=== PATIENT | female | born 1940 | race Caucasian/White ===

== ENCOUNTER 2017-01-23 21:56 | Inpatient (IN) | payer MEDICARE ==
[~2017-01-23] VITALS: Ht 167.6 cm; Wt 118.7 kg
[2017-01-24] VITALS (8 sets, daily range): BP systolic 105–146; BP diastolic 63–81; PULSE 116–148; RESP 16–20; O2SAT 93–98
[2017-01-24] MEDS ORDERED: MeTOProlol 1 mg/mL 5 mL Inj IV ONE (00:55)
[2017-01-24] MEDS ORDERED: Heparin 5,000 Unit/mL Inj SUBQ SCH (01:05)
[2017-01-24] MEDS ORDERED: Polyethylene Glycol (PEG) 17 Gm Powder PO PRN (01:05)
[2017-01-24] MEDS ORDERED: Alum-Mag Hydrox-Simeth 30 mL Suspension PO PRN (01:05)
[2017-01-24] MEDS ORDERED: Ondansetron 2 mg/mL 2 mL Inj IVPUSH PRN (01:05)
[2017-01-24] MEDS ORDERED: MeTOProlol 1 mg/mL 5 mL Inj IV PRN (01:10)
[2017-01-24] MEDS: 0.9% Sodium Chloride 1,000 ML IV SCH ×3 (01:17→21:49)
[2017-01-24] MEDS: MeTOProlol 1 mg/mL 5 mL Inj IVPUSH SCH ×2 (01:20→01:40)
--- NOTE | 2017-01-24 02:07 | PCM.HPMED ---
Subjective Date of Service Jan 24, 2017 Primary Provider: Admitting Physician: Mae Read DO Primary Care Physician: Other,Physician Attending Physician: Mae Read DO Admit Status: Direct Admit Chief Complaint: A. fib with RVR, nausea vomiting diarrhea History of Present Illness: Ms. Bah is a 76-year-old female with past medical history of A. fib, polymyalgia, skin cancer who presented to [facility] secondary to 3 days of nausea and vomiting and diarrhea. She states approximately 3 days ago she became acutely ill with nausea and multiple episodes of vomitus and multiple episodes of diarrhea daily. Denies any blood or mucous in either vomitus or stool. Lives alone with her dog on [facility] [address], no other sick contacts. No recent contact with children. No travel ever outside the country, recent travel in October to [place], east of the [place] area. She reports no changes in her normal diet and cannot think of any spoiled foods or canned foods she has ingested. She has not been able to take her regular prescribed medications secondary to nausea vomiting. She does state in October she was seen by her primary care physician Dr. Kebede on [facility] secondary to a left leg infection, she was given antibiotics for multiple months recently discontinuing the antibiotic course. She does not remember the name of the antibiotic. She denies dizziness, fevers, headache, visual changes, musculoskeletal chest pain, cardiac chest pain, chronic shortness of breath, extremity numbness or tingling. Does state that she has abdominal pain and cramping and occasional shortness of breath on exertion. Direct admit from [facility], unfortunately documentation from [facility] physician was not included in admission paperwork. At time of dictation awaiting further records. Review of Systems: A comprehensive review of systems was conducted with the patient and found to be negative except as above in the history of present illness. Allergies Coded Allergies: No Known Drug Allergies (Unverified Allergy, Unknown, 01/24/17) Home Medications Per [facility] med rec: Atenolol 25mg PO Diltiazam HCL [Diltiazam 24 Hr Cd] 300 mg PO Prednisone 1 mg PO Rivaroxaban [Xaralto] 20 mg po daily Per outpatient [facility] dermatology records - last updated 07/08/2016 Ascorbic acid Atenolol 25 mg Vitamin D Diltiazem ER 360 mg Losartan 100 mg Magnesium Prednisone Triamterene 37.5 mg Hydrocort thiazide 25 mg Vitamin B12 UBIDECARENONE Xaralto Clobetasol [facility] Reports: A. fib Polymyalgia Melanoma Basal cell carcinoma Surgical History Hysterectomy "many years ago" Basal cell carcinoma removal 6 years ago Family History Patient denies contributory family history Social History Hx Alcohol Use: No Hx Substance Use: No Hx Tobacco Use: No Living Arrangement: Alone Exam Vital Signs Vital Sign - Last Date Time Temp Pulse Resp B/P Pulse Ox O2 Delivery O2 Flow Rate FiO2 01/24/17 00:54 37.6 148 20 146/80 96 Room Air Exam General: Obese female lying in hospital bed in mild distress, well-developed, well-nourished, appropriately interactive HEENT: Normocephalic, atraumatic. External ears without defect. Pupils equal, round, and reactive to light and accommodation. Extraocular eye movements intact. Oropharynx free of erythema and cobble stoning with moist mucosa. Neck: Supple with full range of motion. No jugular venous distension. No pain to palpation anterior posterior neck Cardiovascular: Tachycardic rate with irregular rhythm no murmurs appreciated. Pulmonary: Clear to auscultation bilaterally with no crackles, wheezes, or rhonchi. Normal respiratory effort with no use of accessory muscles. GI: Bowel tones present. Soft, mildly tender to palpation left lower quadrant. No masses appreciated Extremities: Lower extremity edema. Venous stasis changes. Neurological: Cranial nerves grossly intact. Lymph: no cervical or supraclavicular lymphadenopathy MSK: no edema / erythema of joints, normal range of motion Psychiatric: Normal mood and affect. Alert and oriented to person, place, and time. Assessment & Plan Ms. Bah is a 76-year-old female with past medical history of A. fib, polymyalgia & skin cancer admitted for A. fib with RVR and N/V/D. Sepsis. Present on admission. Ongoing - Sepsis criteria are met with tachycardia, tachypnea, leukocytosis and hyperthermia - Probable source GI - Fluid resuscitation - Antibiotics vancomycin, metronidazole - Appropriate cultures and serologies pending - Continue to monitor Acute Kidney injury.. Present on admission. Ongoing - No previous records to establish chronicity, request outpatient records - IV fluids - Avoid nephrotoxic agents - Continue to monitor - Consult nephrology if not improved A. fib with RVR. Present on admission. Ongoing - At time of dictation medication reconciliation pending - Reportedly takes home atenolol, diltiazem and Xaralto - awaiting med rec - Reviewed EKG, consistent with atrial fibrillation with RVR - Patient reports she has not taken her medications in over a week - Rate control with metoprolol 5 mg IV and diltiazem 10 mg IV pushes ineffective - Transferred to PCC for IV diltiazem drip - ECG shows atrial fibrillation with right bundle branch block, possible ST depression suboptimal ECG - Telemetry - TSH normal - Restart home Xaralto, day team to confirm dosage Gastroenteritis. Acute. Present on admission. Ongoing - Consider C. difficile colitis, recent long-term antibiotic use - CT from [facility] reportedly negative, records not available at time of dictation, records requested - Stool PCR pending - Leukocytosis and elevated pro calcitonin - ABX as above - IV fluids as above - Electrolyte replacement - Contact precautions Elevated troponin. Acute. Present on admission. Ongoing - Most likely secondary to demand ischemia from A. fib - Patient asymptomatic, reports no cardiac chest pain - Transferred to PCC for diltiazem drip - Continue to monitor Nausea vomiting - Zofran when necessary Anemia. Present on admission. Ongoing - Iron studies panel pending - Stool guaiac - Continue monitor Hyperglycemia. Present on admission. Ongoing - Hemoglobin A1c pending Patient Status: Patient was admitted under inpatient status with expected length of stay greater than two midnights due to severity of presenting symptoms , risk of adverse event, and complexity of treatment plan. VTE Prophylaxis: Sub-Q Heparin (Unfractionated) Resuscitation Status: CPR: Attempt Resuscitation Attending Statement The patient was seen and examined together with house staff on 01/24/2017 and I agree with the history, exam and plan as outlined in the note above. LIAM ROBLEDO DO Jan 24, 2017 02:07 Mae Read DO Jan 24, 2017 05:37
[2017-01-24] MEDS ORDERED: Diltiazem 5 mg/mL 5 mL Inj IVPUSH ONE (02:15)
[2017-01-24] MEDS ORDERED: Vancomycin 250 mg Oral Capsule PO ONE (02:40)
[2017-01-24 02:42] LABS: BASOPHILS % (AUTO) 0.1 % (0-3); EOSINOPHILS % (AUTO) 0 % (0-5); MONOCYTES % (AUTO) 11.4 % (4-12); Mean Corpuscular Hemoglobin 25.6 pg (27.0-35.0); Mean Corpuscular Volume 81.8 fL (81-100); NEUTROPHILS % (AUTO) 84.9 % (40-74); Platelet Count 150 bil/L (150-400)
[2017-01-24 03:01] LABS: INR 1.13 ratio
[2017-01-24 03:39] LABS: Magnesium 1.9 mg/dL (1.6-2.6)
[2017-01-24 03:43] LABS: TROPONIN T 0.566 ug/L (0.0-0.011)
[2017-01-24] MEDS ORDERED: metroNIDAZOLE Inj 500 MG in IV Premix 1 EACH IV SCH (04:00)
[2017-01-24] MEDS ORDERED: 0.9% Sodium Chloride 250 ML IV ONE ×2 (04:10→04:20)
[2017-01-24] MEDS ORDERED: Potassium Chloride 20 mEq SR Tab(K 3 - 3.7 & Cr 2.1 - 2.9) PO ONE (04:35)
[2017-01-24] MEDS: Diltiazem Inj 125 MG in 0.9% Sodium Chloride 100 ML, Pharmacy To Mix 1 EA IV SCH ×4 (05:41→23:06)
[2017-01-24 05:59] LABS: Unsaturated Iron Binding 201.2 ug/dL
[2017-01-24] MEDS: Hydrocortisone 50 mg/mL 2 mL Inj IVPUSH SCH ×2 (09:27→18:02)
[2017-01-24] MEDS ORDERED: DILT300C50 PO (09:41)
[2017-01-24] MEDS ORDERED: ATEN25TA PO (09:41)
[2017-01-24] MEDS ORDERED: RIVA20TA PO (09:41)
[2017-01-24] MEDS ORDERED: PRD1T PO (09:41)
[2017-01-24 10:13] LABS: TROPONIN T 0.519 ug/L (0.0-0.011)
--- NOTE | 2017-01-24 10:49 | PCM.PNMED ---
Subjective Date of Service Jan 24, 2017 Subjective She feels somewhat lethargic. No diarrhea or lasts several hours. No abdominal pain or cramping. She does not feel palpitations. No shortness of breath at rest but some dyspnea with exertion. No chest pain or cough. No overnight events. Exam Vital Signs Vital Sign - Last Date Time Temp Pulse Resp B/P Pulse Ox O2 Delivery O2 Flow Rate FiO2 01/24/17 08:00 130 01/24/17 08:00 38.1 18 120/63 96 Room Air Intake and Output 01/23/17 01/23/17 01/24/17 Cumulative From/Thru 15:00 23:00 07:00 01/24/17 00:54 - 01/24/17 06:16 Intake Total 0 ml 0 ml Output Total 300 ml 300 ml Balance -300 ml -300 ml Intake Oral 0 ml 0 ml Output Urine Total 300 ml 300 ml # Bowel Movements 0 0 Exam Alert and oriented -3, no distress. Fluent speech Anicteric sclera. Lungs are clear with normal rate and effort Heart is irregular without murmur gallop or rub, tachycardic Abdomen soft nontender, flat Extremities with 1+ edema bilaterally. Skin is free of rash or lesions. IVs and Medications Medications Reviewed: Medications were reviewed in detail Lab and Diagnostics Result Diagram: 01/24/17 0225 01/24/17 0910 Assessment & Plan Ms. Bah is a 76-year-old female with past medical history of A. fib, polymyalgia & skin cancer admitted for A. fib with RVR and N/V/D. Sepsis. Present on admission. Improving. - Sepsis criteria are met with tachycardia, tachypnea, leukocytosis and hyperthermia - Probable source GI (gastroenteritis, stool PCR pending) - Fluid resuscitation - Antibiotics vancomycin, metronidazole, we will stop metronidazole. - Appropriate cultures and serologies pending - Continue to monitor Possible adrenal insufficiency, POA. Patient's on low-dose prednisone for PMR. We will place her on stress dose hydrocortisone 100 every 8. Acute renal failure, POA. This is likely a functional volume depletion. We will fluid resuscitate and follow. - A. fib with RVR. Present on admission. Improving. The plan is to have metoprolol 12.5 twice a day and attempt to wean her diltiazem drip. - At time of dictation medication reconciliation pending - Reportedly takes home atenolol, diltiazem and Xaralto - awaiting med rec - Reviewed EKG, consistent with atrial fibrillation with RVR - Patient reports she has not taken her medications in over a week - Rate control with metoprolol 5 mg IV and diltiazem 10 mg IV pushes ineffective - Transferred to PCC for IV diltiazem drip - ECG shows atrial fibrillation with right bundle branch block, possible ST depression suboptimal ECG - Telemetry - TSH normal - Restart home Xaralto, Probable NSTEMI, POA. The patient initially had ST segment depressions laterally with her rapid ventricular response. We will treat her medically at this time and continue to obtain rate control. We will also obtain a 2-D echo. As patient is on Cymbalta will not heparinize her at this time. Gastroenteritis. Acute. Present on admission. Ongoing - Consider C. difficile colitis, recent long-term antibiotic use - CT from [facility]. reportedly negative, records not available at time of dictation, records requested - Stool PCR pending - Leukocytosis and elevated pro calcitonin - ABX as above - IV fluids as above - Electrolyte replacement - Contact precautions Elevated troponin. Acute. Present on admission. Ongoing - Most likely secondary to demand ischemia from A. fib - Patient asymptomatic, reports no cardiac chest pain - Transferred to [facility] for diltiazem drip - Continue to monitor, goal is to minimize cardiac strain with rate control. Nausea vomiting - Zofran when necessary Anemia. Present on admission. Ongoing - Iron studies panel pending - Stool guaiac - Continue monitor clinically Hyperglycemia. Present on admission. Ongoing - Hemoglobin A1c pending, we will manage her with correctional lispro Patient Status: Patient was admitted under inpatient status with expected length of stay greater than two midnights due to severity of presenting symptoms , risk of adverse event, and complexity of treatment plan. VTE Prophylaxis: Sub-Q Heparin (Unfractionated) Resuscitation Status: CPR: Attempt Resuscitation Ye Pandey MD Jan 24, 2017 10:49
[2017-01-24] MEDS ORDERED: Glucose 40% Oral Gel 15 Gm Tube PO PRN (10:50)
[2017-01-24] MEDS ORDERED: Insulin LISPRO 300 Unit/3 mL Inj SUBQ SCH (12:00)
--- NOTE | 2017-01-24 12:58 | DRSVH ---
PROCEDURE: X-RAY CHEST ONE VIEW, PORTABLE ([id number]) INDICATIONS: A-fib TECHNIQUE: One view of the chest was acquired. COMPARISON: None. FINDINGS: Surgical changes and devices: None. Lungs and pleura: Shallow inspiration. No pleural effusions or pneumothorax. Lungs are clear. Mediastinum: Mediastinal contours appear normal. Heart size is prominent for technique. Bones and chest wall: No suspicious bony lesions. Overlying soft tissues appear unremarkable. IMPRESSION: No acute cardiopulmonary disease. Dictated by: Adolfo Fuentes [facility] Interpreted: Jeovany Watkins MD on 01/24/2017 at 10:03 Approved by: Jeovany Watkins M.D. on 01/24/2017 at 12:56
[2017-01-24 16:31] LABS: APPEARANCE,URINE CLOUDY (CLEAR,HAZY); COLOR,URINE YELLOW (YELLOW); OCCULT BLOOD,URINE MODERATE (NEGATIVE); PH,URINE 5.5 (5.0-8.0); UROBILINOGEN,URINE NORMAL (NORMAL)
--- NOTE | 2017-01-24 17:55 | DRSVH ---
[facility] [address] [place] [address] Echocardiogram Report Name: TATY SOLITARIO ate: 01/24/2017 Height: 66 in Hospital Exam Location: [facility] Weight: 246 lb Gender: Female BSA: 2.2 m2 : 1940 Age: 76 yrs BP: 116/70 mmHg Reason For Study: Atrial fibrillation rvr Ordering Physician: HOSPITALIST [facility] Performed By: Jamal Roblero Referring Physician: LIAM ROBLEDO Interpretation Summary Left ventricular size is at the upper limits of normal. Left ventricular systolic function is moderately reduced. The ejection fraction is estimated to be 35-40%. There is mild to moderate global hypokinesis of the left ventricle. The right ventricle is mildly dilated. Right ventricular systolic function is mild to moderately reduced. The right ventricular systolic pressure is estimated at 36 mmHg assuming a right atrial pressure of 8 mm Hg. The left atrium is moderately dilated. The right atrium is mildly dilated. There is moderate mitral regurgitation. There is moderate to severe tricuspid regurgitation. There is no other significant valvular heart disease. The ascending aorta is mildly enlarged. There is atrial fibrillation with RVR. This is most consistent with tachycardia-mediated cardiomyopathy. Procedure: A two-dimensional transthoracic echocardiogram with color flow and Doppler was performed. The study quality was technically adequate. There is no prior echocardiogram noted for this patient. The patient was in atrial fibrillation with rapid ventricular response during the exam with a heart rate exceeding 100 bpm. Left Ventricle: Left ventricular size is at the upper limits of normal. Left ventricular wall thickness is at the upper limits of normal. Left ventricular systolic function is moderately reduced. The ejection fraction is estimated to be 35-40%. There is mild to moderate global hypokinesis of the left ventricle. Diastolic function could not be accurately assessed due to atrial fibrillation. Right Ventricle: The right ventricle is mildly dilated. Right ventricular systolic function is mild to moderately reduced. Atria: The left atrium is moderately dilated. The right atrium is mildly dilated. The interatrial septum is intact with no evidence for an atrial septal defect. Mitral Valve: The mitral valve leaflets are mildly calcified. There is mild to moderate mitral annular calcification. There is moderate mitral regurgitation. Aortic Valve: The aortic valve is normal in structure and function. No aortic regurgitation is present. Tricuspid Valve: The tricuspid valve is normal. There is moderate to severe tricuspid regurgitation. The right ventricular systolic pressure is estimated at 36 mmHg assuming a right atrial pressure of 8 mm Hg. Pulmonic Valve: The pulmonic valve leaflets are thin and pliable; valve motion is normal. There is a trace or physiologic amount of pulmonic regurgitation. There is no other significant valvular heart disease. Great Vessels: The aortic root is normal size. The ascending aorta is mildly enlarged. The pulmonary artery is normal size. The IVC is dilated (diameter is greater than 2.1 cm) yet it collapses greater than 50% with a sniff. This suggests a right atrial pressure of 8 mm Hg. Pericardium/ Pleura There is no pericardial effusion. There is no pleural effusion. MMode/2D Measurements & Calculations LVIDd: 5.3 cm RA long axis LVOT diam LVIDs: 4.6 cm LA A2 area: 26.1 cm FS: 12.6 % LA A4 area: 29.6 cm RA area AoV Opening EPSS: 0.81 cm LA length (vol): 6.6 cm IVSd: 1.0 cm LA vol: 98.8 ml : 22.3 cm Ao root diam LVPWd: 0.93 cm LA vol index RA vol : 72.9 ml asc Aorta RA Diam: 3.7 cm IVC diam: 2.7 cm : 33.4 mm2 LV maria. diameter/BSA LV sys. diameter/BSA RVD1 (basal) TAPSE: 0.96 cm (cm/m^2): 2.4 (cm/m^2): 2.1 Doppler Measurements & Calculations Ao V2 max MV E max sav Med Peak E' Sav TR max sav : 90.5 cm/sec : 105.1 cm/sec : 266.2 cm/sec Ao max PG E/E' med: 21.8 TR max P.4 mmHg : 3.3 mmHg Lat Peak E' Sav PA V2 max: 55.7 cm/sec Ao mean PG PA mean P.71 mmHg E/E' lat: 12.6 LVOT Max Sav E/e' average : 67.5 cm/sec FREDRICK(I,D): 2.5 cm sev ratio Ao V2 mean LV V1 max PG PA V2 mean FREDRICK indexed to BSA : 65.9 cm/sec : 40.4 cm/sec (cm^2/m^2): 1.1 Ao V2 VTI LV V1 VTI: 10.8 cm PA pr(Accel) : 45.3 mmHg FREDRICK(V,D): 2.4 cm2 Reading Physician:MAKI
[2017-01-24] MEDS ORDERED: Insulin GLARgine 100 Unit/mL Syringe SUBQ SCH (21:00)
[2017-01-25] VITALS (9 sets, daily range): BP systolic 102–121; BP diastolic 61–86; PULSE 93–127; RESP 17–23; O2SAT 95–98
[2017-01-25] MEDS: Hydrocortisone 50 mg/mL 2 mL Inj IVPUSH SCH ×3 (01:13→17:11)
[2017-01-25] MEDS ORDERED: Piperacillin-Tazo 3.375 Gm Inj 3.375 GM in Dextrose 5% Minibag Plus 50 ML IV ONE (04:30)
--- NOTE | 2017-01-25 08:31 | PCM.PNMED ---
Subjective Date of Service Jan 25, 2017 Subjective She is very much better today. Some intermittent twinges of pain. No palpitations although she remains in A. fib with RVR. No nausea, no diarrhea. She did have 4 out of 4 positive blood cultures working in our last night. Antibiotics switched to Zosyn. No confusion No other overnight events Exam Vital Signs Vital Sign - Last Date Time Temp Pulse Resp B/P Pulse Ox O2 Delivery O2 Flow Rate FiO2 01/25/17 05:44 115 01/25/17 05:28 36.6 19 113/68 95 Room Air Intake and Output 01/24/17 01/24/17 01/25/17 Cumulative From/Thru 15:00 23:00 07:00 01/24/17 00:54 - 01/25/17 05:25 Intake Total 2334 ml 1371 ml 3705 ml Output Total 300 ml 250 ml 850 ml Balance 2034 ml 1121 ml 2855 ml Intake Oral 586 ml 100 ml 686 ml IV Total 1748 ml 1271 ml 3019 ml Output Urine Total 300 ml 250 ml 850 ml # Bowel Movements 0 0 Exam Alert and oriented -3, no distress. Fluent speech Anicteric sclera. Lungs are clear with normal rate and effort Heart is irregular without murmur gallop or rub, mildly tachycardic Abdomen soft nontender, flat Extremities 2+ edema, chronic Skin is free of rash or lesions. IVs and Medications Medications Reviewed: Medications were reviewed in detail Lab and Diagnostics Result Diagram: 01/24/17 0225 01/24/17 0910 Assessment & Plan Ms. Bah is a 76-year-old female with past medical history of A. fib, polymyalgia & skin cancer admitted for A. fib with RVR and N/V/D. #. Sepsis. Present on admission. Improving. Sources pyelonephritis with GNR septicemia. - Sepsis criteria are met with tachycardia, tachypnea, leukocytosis and hyperthermia - Probable source GI (gastroenteritis, stool PCR pending) - Fluid resuscitation - Antibiotics vancomycin, metronidazole, we will stop metronidazole. - Appropriate cultures and serologies pending - Continue to monitor We will continue Zosyn awaiting cultures. Stop other antibiotics. #. Nausea and diarrhea, POA. Resolved. Follow clinically. #. Probable and STEMI, POA. Active improving. Follow troponins and continue medical management as allowed with her long-term anticoagulation #. Probable chronic systolic heart failure, POA. Echo reveals global LV hypokinesis with an EF of 35%. We will be discussing further risk stratification and ongoing medical management of her cardiac elbows with cardiology this morning. #. Possible adrenal insufficiency, POA. Patient's on low-dose prednisone for PMR. We will place her on stress dose hydrocortisone 100 every 8. #. Acute renal failure, POA. Stable. We will follow creatinine and continue to hold nephrotoxic medications. #. Atrial fibrillation with rapid ventricular response. Present on admission. Improving. We will uptitrate metoprolol to 50 twice a day this morning. - At time of dictation medication reconciliation pending - Reportedly takes home atenolol, diltiazem and Xaralto - awaiting med rec - Reviewed EKG, consistent with atrial fibrillation with RVR - Patient reports she has not taken her medications in over a week - Rate control with metoprolol 5 mg IV and diltiazem 10 mg IV pushes ineffective - Transferred to PCC for IV diltiazem drip - ECG shows atrial fibrillation with right bundle branch block, possible ST depression suboptimal ECG - Telemetry - TSH normal - Restart home Xaralto, #. Hyperglycemia. Present on admission. Improving. We will follow clinically. - Hemoglobin A1c pending, we will manage her with correctional lispro Patient Status: Patient was admitted under inpatient status with expected length of stay greater than two midnights due to severity of presenting symptoms , risk of adverse event, and complexity of treatment plan. DVT prophylaxis, patient is on Xarelto. VTE Prophylaxis: Sub-Q Heparin (Unfractionated) Resuscitation Status: CPR: Attempt Resuscitation Ye Pandey MD Jan 25, 2017 08:31
[2017-01-25] MEDS: 0.9% Sodium Chloride 1,000 ML IV SCH ×2 (08:54→19:54)
[2017-01-25 08:55] LABS: Mean Corpuscular Hemoglobin 25.6 pg (27.0-35.0); Mean Corpuscular Volume 81.2 fL (81-100)
[2017-01-25] MEDS: Diltiazem Inj 125 MG in 0.9% Sodium Chloride 100 ML, Pharmacy To Mix 1 EA IV SCH ×2 (08:55→17:15)
[2017-01-25 09:49] LABS: TROPONIN T 0.296 ug/L (0.0-0.011)
[2017-01-25] MEDS: Piperacillin-Tazo 3.375 Gm Inj 3.375 GM in Dextrose 5% Minibag Plus 50 ML IV SCH ×2 (12:56→17:12)
[2017-01-26] VITALS (7 sets, daily range): BP systolic 116–134; BP diastolic 68–86; PULSE 104–133; RESP 17–25; O2SAT 96–99
[2017-01-26] MEDS: Hydrocortisone 50 mg/mL 2 mL Inj IVPUSH SCH ×4 (00:44→17:28)
[2017-01-26] MEDS: Piperacillin-Tazo 3.375 Gm Inj 3.375 GM in Dextrose 5% Minibag Plus 50 ML IV SCH (00:45)
[2017-01-26] MEDS: Diltiazem Inj 125 MG in 0.9% Sodium Chloride 100 ML, Pharmacy To Mix 1 EA IV SCH (00:45)
[2017-01-26 03:03] LABS: Mean Corpuscular Hemoglobin 25.6 pg (27.0-35.0); Mean Corpuscular Volume 81.5 fL (81-100)
[2017-01-26 03:54] LABS: TROPONIN T 0.242 ug/L (0.0-0.011)
[2017-01-26] MEDS: 0.9% Sodium Chloride 1,000 ML IV SCH ×3 (06:08→19:29)
--- NOTE | 2017-01-26 08:11 | PCM.PNMED ---
Subjective Date of Service Jan 26, 2017 Subjective She is feeling better. She slept well. She is still globally weak. No fevers or chills. No dysuria or polyuria. No cough or shortness of breath. No overnight events Exam Vital Signs Vital Sign - Last Date Time Temp Pulse Resp B/P Pulse Ox O2 Delivery O2 Flow Rate FiO2 01/26/17 05:06 36.4 113 17 118/74 96 Room Air Intake and Output 01/25/17 01/25/17 01/26/17 Cumulative From/Thru 15:00 23:00 07:00 01/24/17 00:54 - 01/26/17 06:10 Intake Total 2173 ml 1490 ml 7368 ml Output Total 1000 ml 1850 ml Balance 1173 ml 1490 ml 5518 ml Intake Oral 840 ml 1526 ml IV Total 1333 ml 1490 ml 5842 ml Output Urine Total 1000 ml 1850 ml # Bowel Movements 0 Exam Alert and oriented -3, no distress. Fluent speech, some dyspnea with talking. Anicteric sclera. Lungs are clear with normal rate and effort Heart is irregular without murmur gallop or rub, mildly tachycardic Abdomen soft nontender, flat Extremities with 1+ edema Skin is free of rash or lesions. Right arm is somewhat swollen IVs and Medications Medications Reviewed: Medications were reviewed in detail Lab and Diagnostics Result Diagram: 01/26/1722401/26/17224 Assessment & Plan Ms. Bah is a 76-year-old female with past medical history of A. fib, polymyalgia & skin cancer admitted for A. fib with RVR and N/V/D. #. Sepsis. Present on admission. Improving. Sources pyelonephritis with Escherichia coli septicemia - Sepsis criteria are met with tachycardia, tachypnea, leukocytosis and hyperthermia - Probable source GI (gastroenteritis, stool PCR pending) - Fluid resuscitation - Antibiotics vancomycin, metronidazole, we will stop metronidazole. - Appropriate cultures and serologies pending - Continue to monitor We will convert to ceftriaxone every 24 hours. Her leukocytosis is likely related to stress dose steroids. #. Nausea and diarrhea, POA. Resolved. Follow clinically. #. Probable NSTEMI, POA. She continues to be asymptomatic. We will continue medical therapy. Her troponins are downtrending. She does have global hypokinesis but no focal wall abnormalities. #. Probable acute on chronic systolic heart failure, POA. Echo reveals global LV hypokinesis with an EF of 35%. We will be discussing further risk stratification and ongoing medical management of her cardiac elbows with cardiology this morning. This likely a manifestation of her fluids. We will give her Lasix 20 IV 1 and follow closely. #. Adrenal insufficiency, POA. Patient's on low-dose prednisone for PMR. Will decrease her stress cortisone 250 every 8. #. Acute renal failure, POA. Stable and slowly improving.. We will follow creatinine and continue to hold nephrotoxic medications. #. Atrial fibrillation with rapid ventricular response. Present on admission. Improving. We will uptitrate metoprolol to 50 twice a day this morning. -Continue Xarelto, we will uptitrate metoprolol to 75 3 times a day. Will stop the diltiazem drip. May have to add digoxin for rate control if she continues to be in the low 100s. #. Hyperglycemia. Present on admission. Improving. We will follow clinically. - Hemoglobin A1c pending, we will manage her with correctional lispro Patient Status: Patient was admitted under inpatient status with expected length of stay greater than two midnights due to severity of presenting symptoms , risk of adverse event, and complexity of treatment plan. DVT prophylaxis, patient is on Xarelto. VTE Prophylaxis: Sub-Q Heparin (Unfractionated) Resuscitation Status: CPR: Attempt Resuscitation Ye Pandey MD Jan 26, 2017 08:11
[2017-01-26] MEDS ORDERED: Meropenem Inj 1,000 MG in 0.9% Sodium Chloride 100 ML IV SCH (08:30)
[2017-01-26] MEDS: Furosemide 10 mg/mL 2 mL Inj IVPUSH ONE ×2 (08:45→11:07)
[2017-01-26] MEDS: cefTRIAXone Inj 2,000 MG in Dextrose 5% Minibag Plus 50 ML IV SCH ×2 (08:46→11:08)
[2017-01-26] MEDS ORDERED: Sodium Chloride LOK Flush 10 mL Syringe IVFLUSH PRN ×2 (11:05)
--- NOTE | 2017-01-26 12:30 | DRSVH ---
PROCEDURE: X-RAY PICC LINE PLACEMENT BY NURSE ([id number]) INDICATIONS: poor venous access COMPARISON: [facility], CR, XR CHEST 1VW (PORTABLE), 01/24/2017, 5:32. FINDINGS: PICC was placed by the intravenous therapy team from the left side. Fluoroscopic spot sujatha m demonstrates tip of PICC at the cavoatrial junction. IMPRESSION: Tip of PICC lies at the cavoatrial junction. Dictated by: Gordo Carroll M.D. on 01/26/2017 at 12:23 Approved by: Gordo Carroll M.D. on 01/26/2017 at 12:23
[2017-01-26] MEDS: Neomycin-Bacitracin-Polymyxin 15 Gm Ointment TOPICAL SCH (12:53)
[2017-01-27] VITALS (9 sets, daily range): BP systolic 108–169; BP diastolic 58–89; PULSE 70–125; RESP 18–24; O2SAT 95–99
[2017-01-27] MEDS: Hydrocortisone 50 mg/mL 2 mL Inj IVPUSH SCH ×3 (01:17→17:18)
[2017-01-27] MEDS: 0.9% Sodium Chloride 1,000 ML IV SCH ×2 (05:34→17:18)
[2017-01-27] MEDS: NEOMY/BACITRA/POLYMYX OINT 1 PACKET/0.9 GM PACKET TOPICAL SCH ×2 (08:30→20:30)
[2017-01-27] MEDS: cefTRIAXone Inj 2,000 MG in Dextrose 5% Minibag Plus 50 ML IV SCH (10:17)
[2017-01-27 10:39] LABS: Mean Corpuscular Hemoglobin 25.2 pg (27.0-35.0); Mean Corpuscular Volume 80.7 fL (81-100)
[2017-01-27 11:15] LABS: TROPONIN T 0.145 ug/L (0.0-0.011)
[2017-01-27] MEDS ORDERED: Furosemide 10 mg/mL 2 mL Inj IVPUSH ONE (11:40)
--- NOTE | 2017-01-27 13:33 | PCM.PNMED ---
Subjective Date of Service Jan 27, 2017 Subjective She has a little more energy today. No chest pain. She has dyspnea with exertion and a history of chronic systolic heart failure. She has had several soft stools but no overt diarrhea like before admission. No fevers or chills. She is being treated for Escherichia coli septicemia and pyelonephritis. No overnight events noted Exam Vital Signs Vital Sign - Last Date Time Temp Pulse Resp B/P Pulse Ox O2 Delivery O2 Flow Rate FiO2 01/27/17 13:09 112 01/27/17 12:38 36.4 24 122/72 98 Room Air Intake and Output 01/26/17 01/26/17 01/27/17 Cumulative From/Thru 15:00 23:00 07:00 01/24/17 00:54 - 01/27/17 06:02 Intake Total 650 ml 1709 ml 1144 ml 80555 ml Output Total 1050 ml 850 ml 3750 ml Balance -400 ml 859 ml 1144 ml 7121 ml Intake Oral 650 ml 792 ml 2968 ml IV Total 917 ml 1144 ml 7903 ml Output Urine Total 1050 ml 850 ml 3750 ml # Bowel Movements 0 Exam Alert and oriented -3, no distress. Fluent speech Anicteric sclera. Lungs are clear with normal rate and effort Heart is irregular without murmur gallop or rub, tachycardic Abdomen soft nontender, flat Extremities are free of edema. Skin is free of rash or lesions. IVs and Medications Medications Reviewed: Medications were reviewed in detail Lab and Diagnostics Result Diagram: 01/27/17 1015 01/27/17 1015 Assessment & Plan Ms. Bah is a 76-year-old female with past medical history of A. fib, polymyalgia & skin cancer admitted for A. fib with RVR and N/V/D. #. Sepsis. Present on admission. Resolved. Source is pyelonephritis with Escherichia coli septicemia Continue ceftriaxone, leukocytosis is beginning to improve #. Nausea and diarrhea, POA. Resolved. Now with some soft stools. Send stool PCR CDT #. Probable NSTEMI, POA. She continues to be asymptomatic. We will continue medical therapy. Her troponins are downtrending. She does have global hypokinesis but no focal wall abnormalities. She may require further risk stratification after getting over her acute sepsis syndrome #. Probable acute on chronic systolic heart failure, POA. Echo reveals global LV hypokinesis with an EF of 35%. W will give her an additional dose of Lasix IV today. We will also check a chest x-ray confirmed probable pulmonary edema. #. Adrenal insufficiency, POA. Patient's on low-dose prednisone for PMR. Will decrease her stress cortisone to 50 every 8. #. Acute renal failure, POA. Stable and slowly improving.. We will follow creatinine and continue to hold nephrotoxic medications. #. Atrial fibrillation with rapid ventricular response. Present on admission. Persisting. We will add digoxin orally daily and continue her metoprolol 100 mg by mouth twice a day. She does have chronic atrial fibrillation and typically has better rate control. Continue chronic seroma to. #. Hyperglycemia. Present on admission. Improving. We will follow clinically. - Hemoglobin A1c pending, we will manage her with correctional lispro Patient Status: Patient was admitted under inpatient status with expected length of stay greater than two midnights due to severity of presenting symptoms , risk of adverse event, and complexity of treatment plan. DVT prophylaxis, patient is on Xarelto. She will likely build a discharge in the next few days or so pending clinical course and rate control. VTE Prophylaxis: Sub-Q Heparin (Unfractionated) Resuscitation Status: CPR: Attempt Resuscitation Ye Pandey MD Jan 27, 2017 13:32
--- NOTE | 2017-01-27 15:54 | DRSVH ---
PROCEDURE: X-RAY CHEST ONE VIEW, PORTABLE ([id number]) INDICATIONS: dyspnea TECHNIQUE: One view of the chest was acquired. COMPARISON: [facility], CR, XR CHEST 1VW (PORTABLE), 01/24/2017, 5:32. FINDINGS: Surgical changes and devices: Left PICC present tip projected over the mid superior vena cava. Lungs and pleura: No pleural effusions or pneumothorax. Lungs are clear. Mediastinum: Mediastinal contours appear normal. Heart size is normal. Bones and chest wall: No suspicious bony lesions. Overlying soft tissues appear unremarkable. IMPRESSION: No acute cardiopulmonary disease. Dictated by: Adolfo Fuentes [facility] Interpreted: Leonor Mcintosh MD on 01/27/2017 at 13:32 Approved by: Leonor Mcintosh M.D. on 01/27/2017 at 15:53
[2017-01-27] MEDS: Vancomycin 250 mg Oral Capsule PO SCH (23:37)
[2017-01-28] VITALS (9 sets, daily range): BP systolic 146–169; BP diastolic 90–102; PULSE 92–116; RESP 17–20; O2SAT 93–98
[2017-01-28] MEDS: Hydrocortisone 50 mg/mL 2 mL Inj IVPUSH SCH ×2 (00:32→10:02)
[2017-01-28] MEDS: 0.9% Sodium Chloride 1,000 ML IV SCH ×3 (00:33→20:53)
[2017-01-28 03:52] LABS: Mean Corpuscular Hemoglobin 25.5 pg (27.0-35.0); Mean Corpuscular Volume 81.3 fL (81-100)
[2017-01-28] MEDS: Vancomycin 250 mg Oral Capsule PO SCH ×4 (05:10→23:24)
[2017-01-28] MEDS: NEOMY/BACITRA/POLYMYX OINT 1 PACKET/0.9 GM PACKET TOPICAL SCH ×2 (08:30→19:27)
[2017-01-28] MEDS: cefTRIAXone Inj 2,000 MG in Dextrose 5% Minibag Plus 50 ML IV SCH (10:01)
--- NOTE | 2017-01-28 14:32 | PCM.PNMED ---
Subjective Date of Service Jan 28, 2017 Subjective 76-year-old woman presents with Escherichia coli sepsis due to urinary source and diarrhea due to C. difficile colitis. She continues to feel very weak. Appetite is moderately diminished. No severe fevers chills or rigors. No abdominal or flank pain. She describes soft stools with some urgency but no overt diarrhea. Exam Vital Signs Vital Sign - Last Date Time Temp Pulse Resp B/P Pulse Ox O2 Delivery O2 Flow Rate FiO2 01/28/17 13:47 101 01/28/17 13:23 36.5 20 146/92 94 Room Air Intake and Output 01/27/17 01/27/17 01/28/17 Cumulative From/Thru 15:00 23:00 07:00 01/24/17 00:54 - 01/28/17 05:58 Intake Total 1972 ml 1652 ml 24827 ml Output Total 1050 ml 600 ml 5400 ml Balance 922 ml 1052 ml 9095 ml Intake Oral 886 ml 400 ml 4254 ml IV Total 1086 ml 1252 ml 46114 ml Output Urine Total 1050 ml 400 ml 5200 ml Urine/Stool Mix 200 ml 200 ml # Voids 2 2 # Bowel Movements 3 3 Exam General: Obese elderly woman in mild distress, diminished mood HEENT: sclerae anicteric, oral mucosa moist Neck: no JVD Chest: clear to auscultation Cardiac: S1S2, irregular, no murmur Abdomen: BS normal, non-tender Extremities: No pitting edema Neuro: A&O, cranial nerves symmetric, motor strength and coordination normal Lab and Diagnostics Result Diagram: 01/28/17 0350 01/28/17 0350 Assessment & Plan Ms. Bah is a 76-year-old female with past medical history of A. fib, polymyalgia & skin cancer admitted for A. fib with RVR and N/V/D. #. Sepsis. Present on admission. Resolving. Source is pyelonephritis with Escherichia coli septicemia - Antibiotics initiated 01/26/17 Continue ceftriaxone #. Nausea and diarrhea, POA. Resolving. Stool culture is positive for C. difficile as of 01/27/17 - Oral vancomycin initiated 01/27/17. #. Elevated troponin, possible NSTEMI, POA. She continues to be asymptomatic. Troponin 0.57 on admission, now declined to 0.15 with no change in renal function. Rate related cardiac strain due to A. fib versus underlying ischemic CAD. She does have global hypokinesis but no focal wall abnormalities. - Observe clinically #. Chronic systolic heart failure, POA. Echo reveals global LV hypokinesis with an EF of 35%. - When necessary Lasix #. PMR with low dose prednisone therapy. - Stress dose steroids not indicated #. Acute kidney injury, with CK D stage IV POA. Her baseline renal function is not known. Stable. - follow creatinine and continue to hold nephrotoxic medications. #. Atrial fibrillation with rapid ventricular response. Present on admission. Persisting. On rivaroxaban and metoprolol chronically - Continue Xarelto - digoxin orally daily and - continue her metoprolol 100 mg by mouth twice a day. #. Hyperglycemia. Present on admission. Improving. We will follow clinically. - Hemoglobin A1c pending, - 4 times a day blood sugar checks - Basal and correctional insulin Chronic stable problems: #PMR # Congestive heart failure systolic with LVEF 35% Patient Status: Patient was admitted under inpatient status with expected length of stay greater than two midnights due to severity of presenting symptoms , risk of adverse event, and complexity of treatment plan. Anticipate 1-2 more days for recovery of strength and ability to ambulate independently. Anticipate by mouth antibiotics. To complete 10 days oral vancomycin for C. difficile. DVT prophylaxis, patient is on Xarelto. VTE Prophylaxis: Other Resuscitation Status: CPR: Attempt Resuscitation Time spent 35 minutes Goyo Alvarez MD Jan 28, 2017 14:31
[2017-01-28] MEDS ORDERED: Dextrose 10% 250 ML IV PRN (14:35)
[2017-01-28] MEDS ORDERED: Glucose 40% Oral Gel 15 Gm Tube PO PRN (14:35)
[2017-01-28] MEDS: Insulin LISPRO 300 Unit/3 mL Inj SUBQ SCH ×2 (17:30→20:52)
[2017-01-29] VITALS (9 sets, daily range): BP systolic 158–191; BP diastolic 95–114; PULSE 98–121; RESP 17–20; O2SAT 94–99
[2017-01-29] MEDS ORDERED: Furosemide 10 mg/mL 4 mL Inj IVPUSH ONE (03:40)
[2017-01-29] MEDS: Vancomycin 250 mg Oral Capsule PO SCH ×4 (04:21→23:00)
[2017-01-29 05:39] LABS: Mean Corpuscular Hemoglobin 25.1 pg (27.0-35.0); Mean Corpuscular Volume 82.2 fL (81-100); Platelet Count 303 bil/L (150-400)
[2017-01-29] MEDS ORDERED: Potassium Chloride Oral 20 mEq SR Tab(K 3 - 3.7 & Creat < 2) PO ONE (06:40)
[2017-01-29 06:41] LABS: BASOPHILS % (AUTO) 0 % (0-3); EOSINOPHILS % (AUTO) 0 % (0-5); MONOCYTES % (AUTO) 9 % (4-12); NEUTROPHILS % (AUTO) 84 % (40-74)
[2017-01-29] MEDS: Insulin LISPRO 300 Unit/3 mL Inj SUBQ SCH ×4 (08:00→19:59)
[2017-01-29] MEDS: NEOMY/BACITRA/POLYMYX OINT 1 PACKET/0.9 GM PACKET TOPICAL SCH ×2 (09:21→19:50)
[2017-01-29] MEDS: cefTRIAXone Inj 2,000 MG in Dextrose 5% Minibag Plus 50 ML IV SCH (09:22)
--- NOTE | 2017-01-29 14:34 | PCM.PNMED ---
Subjective Date of Service Jan 29, 2017 Subjective 76-year-old woman presents with Escherichia coli sepsis due to urinary source and diarrhea due to C. difficile colitis. She continues to feel very weak. Very fatigued due to sleep interruptions last night. Appetite is moderately diminished. She describes soft stools with some urgency but no overt diarrhea. Exam Vital Signs Vital Sign - Last Date Time Temp Pulse Resp B/P Pulse Ox O2 Delivery O2 Flow Rate FiO2 01/29/17 13:54 Room Air 01/29/17 13:06 36.4 106 17 163/95 99 Intake and Output 01/28/17 01/28/17 01/29/17 Cumulative From/Thru 15:00 23:00 07:00 01/24/17 00:54 - 01/29/17 06:11 Intake Total 2163 ml 1710 ml 85296 ml Output Total 925 ml 1550 ml 7875 ml Balance 1238 ml 160 ml 08535 ml Intake Oral 836 ml 900 ml 5990 ml IV Total 1327 ml 810 ml 46269 ml Output Urine Total 925 ml 1550 ml 7675 ml Urine/Stool Mix 200 ml # Voids 2 # Bowel Movements 3 6 Exam General: Obese elderly woman in mild distress, diminished mood HEENT: sclerae anicteric, oral mucosa moist Neck: no JVD Chest: clear to auscultation Cardiac: S1S2, irregular, no murmur Abdomen: BS normal, non-tender Extremities: Trace pitting edema; tender nonpitting edema with stasis changes Neuro: A&O, cranial nerves symmetric, motor strength and coordination normal IVs and Medications Medications Reviewed: Medications were reviewed in detail Lab and Diagnostics Result Diagram: 01/29/1753001/29/17530 Assessment & Plan Ms. Bah is a 76-year-old female with past medical history of A. fib, polymyalgia & skin cancer admitted for A. fib with RVR and N/V/D. Acute, Active or High-risk Problems: #. Sepsis. Present on admission. Resolving. Source is pyelonephritis with Escherichia coli septicemia - Antibiotics initiated 01/26/17 - Continue ceftriaxone for pyelonephritis #. C. difficile colitis, moderate. Marked leukocytosis. Diarrhea is mild. Last fever was low-grade on 01/24/17. Resolving. - Stool culture is positive for C. difficile as of 01/27/17 - Oral vancomycin initiated 01/27/17. #. Chronic systolic heart failure, POA. Echo reveals global LV hypokinesis with an EF of 35%. Experience dyspnea and hypoxia at night on 01/28 and received furosemide. Lungs subsequently clear with good oxygenation and normal respiratory rate. - When necessary Lasix - Discontinue IV fluids #. Deconditioning and weakness. Metabolic myopathy due to sepsis. - Physical therapy consult, encourage ambulation - Anticipate discharge with home physical therapy versus SNF Chronic or Stable but Actively Managed Problems: #. Elevated troponin, possible NSTEMI, POA. She continues to be asymptomatic. Troponin 0.57 on admission, now declined to 0.15 with no change in renal function. Rate related cardiac strain due to A. fib versus underlying ischemic CAD. She does have global hypokinesis but no focal wall abnormalities. - Observe clinically #. PMR with low dose prednisone therapy. Recently on 3 mg per day. Stress dose steroids not indicated - Hydrocortisone discontinued #. Acute kidney injury, with CK D stage IV POA. Her baseline renal function is not known. Stable. - follow creatinine and continue to hold nephrotoxic medications. #. Atrial fibrillation with rapid ventricular response. Present on admission. Persisting. On rivaroxaban and metoprolol chronically. Heart rate remains mildly elevated, consistent with her metabolic stress. - Continue Xarelto - digoxin orally daily and - continue her metoprolol 100 mg by mouth twice a day. Will not increase dose for mild tachycardia. #. Hyperglycemia. Present on admission. Improving. We will follow clinically. - Hemoglobin A1c pending, - 4 times a day blood sugar checks - Basal and correctional insulin Chronic stable problems: #PMR # Congestive heart failure systolic with LVEF 35% Patient Status: Patient was admitted under inpatient status with expected length of stay greater than two midnights due to severity of presenting symptoms , risk of adverse event, and complexity of treatment plan. Anticipate 2 more days for recovery of strength and ability to ambulate independently. Anticipate by mouth antibiotics. To complete 10-14 days oral vancomycin for C. difficile. DVT prophylaxis, patient is on Xarelto. VTE Prophylaxis: Other Resuscitation Status: CPR: Attempt Resuscitation Time spent 35 min Goyo Alvarez MD Jan 29, 2017 14:34
[2017-01-29] MEDS ORDERED: Potassium Chloride 20 mEq SR Tablet PO ONE ×2 (14:55→15:15)
[2017-01-29] MEDS ORDERED: Nitroglycerin 2% 1 Gm Ointment TOPICAL ONE (23:20)
[2017-01-30] VITALS (10 sets, daily range): BP systolic 139–180; BP diastolic 88–111; PULSE 102–114; RESP 16–20; O2SAT 93–100
[2017-01-30] MEDS ORDERED: Labetalol 5 mg/mL 20 mL Inj IVPUSH ONE (02:20)
[2017-01-30] MEDS: Vancomycin 250 mg Oral Capsule PO SCH ×4 (07:40→21:08)
[2017-01-30] MEDS: cefTRIAXone Inj 2,000 MG in Dextrose 5% Minibag Plus 50 ML IV SCH (07:41)
[2017-01-30] MEDS: Insulin LISPRO 300 Unit/3 mL Inj SUBQ SCH ×4 (08:00→22:00)
[2017-01-30] MEDS: NEOMY/BACITRA/POLYMYX OINT 1 PACKET/0.9 GM PACKET TOPICAL SCH (08:30)
--- NOTE | 2017-01-30 13:28 | PCM.PNMED ---
Subjective Date of Service Jan 30, 2017 Subjective 76-year-old woman presents with Escherichia coli sepsis due to urinary source and diarrhea due to C. difficile colitis. She continues to feel weak. Very fatigued due to sleep interruptions last night. Appetite is moderately diminished. No diarrhea or abdominal pain. Exam Vital Signs Vital Sign - Last Date Time Temp Pulse Resp B/P Pulse Ox O2 Delivery O2 Flow Rate FiO2 01/30/17 05:29 110 01/30/17 03:31 173/96 01/30/17 02:03 36.6 16 98 Room Air Intake and Output 01/29/17 01/29/17 01/30/17 Cumulative From/Thru 15:00 23:00 07:00 01/24/17 00:54 - 01/30/17 05:03 Intake Total 936 ml 300 ml 02925 ml Output Total 750 ml 750 ml 9375 ml Balance 186 ml -450 ml 61950 ml Intake Oral 936 ml 300 ml 7226 ml IV Total 83043 ml Output Urine Total 750 ml 750 ml 9175 ml Urine/Stool Mix 200 ml # Voids 2 # Bowel Movements 2 0 8 Exam General: Obese elderly woman in mild distress, diminished mood HEENT: sclerae anicteric, oral mucosa moist Neck: no JVD Chest: clear to auscultation Cardiac: S1S2, irregular, no murmur Abdomen: BS normal, non-tender Extremities: Trace pitting edema; significant tender nonpitting edema with stasis changes Neuro: A&O, cranial nerves symmetric, motor strength and coordination normal IVs and Medications Medications Reviewed: Medications were reviewed in detail Lab and Diagnostics Result Diagram: 01/29/17 0531 01/30/17 1240 Assessment & Plan Ms. Bah is a 76-year-old female with past medical history of A. fib, polymyalgia & skin cancer admitted for A. fib with RVR and N/V/D. Acute, Active or High-risk Problems: #. Sepsis. Present on admission. Resolving. Source is pyelonephritis with Escherichia coli septicemia. Today day 6 IV antibiotics. - Switched to co-trimoxazole to complete 14 days for complicated pyelonephritis #. C. difficile colitis, moderate. Marked leukocytosis. Diarrhea is mild. Last fever was low-grade on 01/24/17. Resolving. - Stool culture is positive for C. difficile as of 6/12/17 - Oral vancomycin initiated 01/27/17. #. Atrial fibrillation with rapid ventricular response. Present on admission. Persisting. On rivaroxaban and metoprolol chronically. Heart rate remains mildly elevated, consistent with her metabolic stress. - Continue Xarelto - digoxin orally daily and - Increased her metoprolol 100 mg by mouth twice a day to TID. #. Chronic systolic heart failure, POA. Echo reveals global LV hypokinesis with an EF of 35%. Experience dyspnea and hypoxia at night on 01/28 and received furosemide. Lungs subsequently clear with good oxygenation and normal respiratory rate. No hypertensive due to fluid overload - IV Lasix 20 mg daily started 01/30 #. Hypertension, acute on chronic. Normotensive at type of admission. Currently approximately 160/100 range - Diuretic - Add clonidine short-term #. Deconditioning and weakness. Metabolic myopathy due to sepsis. - Physical therapy consult, encourage ambulation - Anticipate discharge with home physical therapy versus SNF Chronic or Stable but Actively Managed Problems: #. Elevated troponin, possible NSTEMI, POA. She continues to be asymptomatic. Troponin 0.57 on admission, now declined to 0.15 with no change in renal function. Rate related cardiac strain due to A. fib versus underlying ischemic CAD. She does have global hypokinesis but no focal wall abnormalities. - Observe clinically #. PMR with low dose prednisone therapy. Recently on 3 mg per day. Stress dose steroids not indicated - Hydrocortisone discontinued #. Acute kidney injury, with CK D stage IV POA. Her baseline renal function is not known. Stable. - follow creatinine and continue to hold nephrotoxic medications. #. Hyperglycemia. Present on admission. Improving. We will follow clinically. - Hemoglobin A1c pending, - 4 times a day blood sugar checks - Basal and correctional insulin Chronic stable problems: #PMR # Congestive heart failure systolic with LVEF 35% Patient Status: Anticipate discharge on 01/31 of heart rate and blood pressure adequately controlled. To complete 14 days therapy for pyelonephritis, then 5 more days oral vancomycin for C. difficile. DVT prophylaxis, patient is on Xarelto. VTE Prophylaxis: Other Resuscitation Status: CPR: Attempt Resuscitation Time spent 40 minutes Goyo Alvarez MD Jan 30, 2017 13:28 Goyo Alvarez MD Jan 30, 2017 13:28
[2017-01-30] MEDS: Furosemide 10 mg/mL 2 mL Inj IVPUSH SCH (13:33)
[2017-01-30] MEDS: cloNIDine 0.1 mg Tablet PO SCH ×2 (13:33→21:08)
[2017-01-30] MEDS: Neomycin-Bacitracin-Polymyxin 15 Gm Ointment TOPICAL SCH (21:09)
[2017-01-31] VITALS (7 sets, daily range): BP systolic 154–179; BP diastolic 68–96; PULSE 90–114; RESP 16–18; O2SAT 98–99
[2017-01-31] MEDS: Neomycin-Bacitracin-Polymyxin 15 Gm Ointment TOPICAL SCH ×2 (00:12→08:03)
[2017-01-31] MEDS: Vancomycin 250 mg Oral Capsule PO SCH ×4 (00:12→14:53)
[2017-01-31] MEDS: NEOMY/BACITRA/POLYMYX OINT 1 PACKET/0.9 GM PACKET TOPICAL SCH (00:13)
[2017-01-31 07:34] LABS: Mean Corpuscular Hemoglobin 25.1 pg (27.0-35.0); Mean Corpuscular Volume 83.7 fL (81-100)
[2017-01-31] MEDS: Insulin LISPRO 300 Unit/3 mL Inj SUBQ SCH ×2 (08:00→12:00)
[2017-01-31] MEDS: Furosemide 10 mg/mL 2 mL Inj IVPUSH SCH (08:02)
[2017-01-31] MEDS: cefTRIAXone Inj 2,000 MG in Dextrose 5% Minibag Plus 50 ML IV SCH (08:02)
[2017-01-31] MEDS ORDERED: cloNIDine 0.1 mg Tablet PO SCH (08:30)
[2017-01-31] MEDS ORDERED: SULF1TAB7 PO (12:50)
[2017-01-31] MEDS ORDERED: VANC250C3 PO (12:50)
[2017-01-31] MEDS ORDERED: TRIA1TAB2 PO (12:50)
[2017-01-31] MEDS ORDERED: ATOR20TA PO (12:53)
--- NOTE | 2017-01-31 14:06 | PCM.DIMED ---
Discharge Instructions Date of Service Jan 31, 2017 Dates of Hospitalization Jan 24, 2017 at 00:29 Discharge Diagnosis Discharge Diagnosis Sepsis due to Escherichia coli bacteremia Pyelonephritis due to Escherichia coli C. difficile colitis Atrial fibrillation with rapid ventricular response Hypertension Chronic kidney disease Medication Instructions Additional med instructions The antibiotic Bactrim (co-trimoxazole) is prescribed for the next 6 days to complete your treatment for infection of the kidney with spread to the bloodstream. The antibiotic vancomycin capsules is taken 4 times per day for your C. difficile colitis. It is important that you continue this for 1 full week after you complete your antibiotic treatment for the kidney infection. This will prevent recurrence of your C. difficile colitis. C. difficile can cause spores to linger in clothing, bathroom and bedroom areas. It is cleared by soap and water. A thorough laundering of towels, recently used clothes and bedding is advised. A soap and water cleaning of bathroom is recommended. Your blood pressure has been very elevated during this hospitalization. This may in part be due to intravenous fluids that were administered. To help control your blood pressure we advised that you take your usual medications ( atenolol and diltiazem) as well as a new prescription for the mild water pill Maxzide. Take this regularly for the next few weeks, and contact your physician regarding how long this should be continued. Based on your risk factors for vascular disease, we recommend that you take atorvastatin (Lipitor) to reduce your risk of stroke and heart attack. We have reduced the dose slightly in light of your use of diltiazem, which boosts the effect of atorvastatin. Contact your physician regarding continuation of this medication. Test Results Test Results CBC Test 01/27/17 17:30 01/29/17 05:31 01/31/17 03:20 Hold Purple Top Tube Received (Received) Neutrophils (%) (Auto) 84% (40-74) Lymphocytes (%) (Auto) 7% (14-46) Monocytes (%) (Auto) 9% (4-12) Eosinophils (%) (Auto) 0% (0-5) Basophils (%) (Auto) 0% (0-3) White Blood Count 19.9th/mm3 (3.8-10.1) Red Blood Count 3.62mil/mm3 (3.90-5.20) Hemoglobin 9.1g/dL (12.0-15.6) Hematocrit 30.3% (35.0-46.0) Mean Corpuscular Volume 83.7fL (81-100) Mean Corpuscular Hemoglobin 25.1pg (27.0-35.0) Mean Corpuscular Hemoglobin Concent 30.0% (32.0-37.0) Red Cell Distribution Width 18.6% (12.3-15.4) Platelet Count 285bil/L (150-400) CMP Test 01/24/17 02:25 01/25/17 08:50 01/27/17 10:15 01/27/17 17:30 Hemoglobin A1c 5.6% Lactic Acid Level 1.1mmol/L Magnesium Level 1.9mg/dL Iron Level 10ug/dL Total Iron Binding Capacity 211ug/dL Percent Iron Saturation 5%sat Unsaturated Iron Binding 201.2ug/dL Thyroid Stimulating Hormone (TSH) 1.340uIU/mL Total Bilirubin 0.3mg/dL Aspartate Amino Transf (AST/SGOT) 34U/L Alanine Aminotransferase (ALT/SGPT) 45U/L Alkaline Phosphatase 103U/L Total Protein 5.5g/dL Albumin 2.5g/dL Troponin T 0.145ug/L Hold Lane Top Tube Received Test 01/31/17 03:20 Sodium Level 145mEq/L Potassium Level 4.1mEq/L Chloride Level 111mEq/L Carbon Dioxide Level 19mmol/L Blood Urea Nitrogen 44mg/dL Creatinine 1.54mg/dL Estimat Glomerular Filtration Rate 47mL/min Glucose Level 105mg/dL Calcium Level 8.5mg/dL Procalcitonin 0.48ng/mL Diet Discharge Diet: Heart Healthy Activity Discharge Activity: Other ( Obtain assistance from friends and family for strenuous activities. Continue with home and outpatient physical therapy to restore your strength.) Patient Instructions Patient Instructions Your white blood cell count has remained elevated throughout this hospitalization, although most other signs suggest that you are recovering from urinary infection and colitis. Be vigilant for signs of fever, abdominal pain, diarrhea or confusion which may indicate recurrence of C. difficile infection. Follow-up plan We recommend home health physical therapy 3 times per week for the next 4 weeks , home RN once per week for 2 weeks to check your blood pressure and heart rate. Contact your primary care doctor on Friday for a post-hospitalization follow-up appointment. Goyo Alvarez MD Jan 31, 2017 13:09
--- NOTE | 2017-02-05 17:57 | PCM.DC.MED ---
Discharge Summary Date of Service Feb 05, 2017 Dates of Hospitalization Date of Hospital Admission Jan 24, 2017 at 00:29 Date of Discharge: Jan 31, 2017 Providers: Admitting Physician: Mae Read DO Primary Care Physician: Other,Physician Attending Physician: Mae Read DO Diagnosis at Time of Discharge Diagnosis at Time of Discharge Sepsis due to Escherichia coli bacteremia Pyelonephritis due to Escherichia coli C. difficile colitis Atrial fibrillation with rapid ventricular response Hypertension Chronic kidney disease Brief History History of Present Illness (per admission note): Ms. Bah is a 76-year-old female with past medical history of A. fib, polymyalgia, skin cancer who presented to [facility] secondary to 3 days of nausea and vomiting and diarrhea. She states approximately 3 days ago she became acutely ill with nausea and multiple episodes of vomitus and multiple episodes of diarrhea daily. Denies any blood or mucous in either vomitus or stool. Lives alone with her dog on [facility] [address], no other sick contacts. No recent contact with children. No travel ever outside the country, recent travel in October to [place], east of the [facility]. She reports no changes in her normal diet and cannot think of any spoiled foods or canned foods she has ingested. She has not been able to take her regular prescribed medications secondary to nausea vomiting. She does state in October she was seen by her primary care physician Dr. Kebede on [facility] secondary to a left leg infection, she was given antibiotics for multiple months recently discontinuing the antibiotic course. She does not remember the name of the antibiotic. She denies dizziness, fevers, headache, visual changes, musculoskeletal chest pain, cardiac chest pain, chronic shortness of breath, extremity numbness or tingling. Does state that she has abdominal pain and cramping and occasional shortness of breath on exertion.Direct admit from [facility]. . Hospital Course Acute, Active or High-risk Problems: #. Sepsis. Present on admission. Resolving. Source is pyelonephritis with Escherichia coli septicemia. Today day 6 IV antibiotics. - Switched to co-trimoxazole to complete 14 days for complicated pyelonephritis #. C. difficile colitis, moderate. Marked leukocytosis which persisted throughout the hospitalization despite overall clinical stability. Diarrhea is mild. Last fever was low-grade on 01/24/17, subsequently afebrile. - Stool culture is positive for C. difficile as of 01/27/17 - Oral vancomycin initiated 01/27/17, to continue 1 week after completion of pyelonephritis antibiotics. #. Atrial fibrillation with rapid ventricular response. Present on admission. Persisting. Rate control achieved with digoxin orally daily and metoprolol 100 mg TID. - Continue Xarelto - Return to her prior atenolol plus diltiazem regimen at time of discharge - Recommend home health RN to monitor cardiovascular vital signs and respiratory status #. Chronic systolic heart failure, POA. Echo reveals global LV hypokinesis with an EF of 35%. Experience dyspnea and hypoxia at night on 01/28 and received furosemide. Lungs subsequently clear with good oxygenation and normal respiratory rate. She received IV Lasix 20 mg daily for several days. - She is not on Rik/ARB, but reluctant to do so at this time due to acute kidney injury, CKD and initiation of co-trimoxazole for recovery from pyelonephritis - Defer to primary care provider #. Hypertension, acute on chronic. Normotensive at type of admission. Currently approximately 160/100 range, due to fluid resuscitation from sepsis. Responded well to diuresis. - Stable on atenolol and diltiazem at time of discharge #. Deconditioning and weakness. Metabolic myopathy due to sepsis. - Discharge with home physical therapy versus SNF Chronic or Stable but Actively Managed Problems: #. Elevated troponin, possible NSTEMI, POA. No chest pain. She continues to be asymptomatic throughout hospitalization. Troponin 0.57 on admission, now declined to 0.15 with no change in renal function. This was considered to be due to rate related cardiac strain due to A. fib, less likely unstable ischemic CAD. She does have global hypokinesis but no focal wall abnormalities. #. PMR with low dose prednisone therapy. Recently on 3 mg per day. Stress dose steroids ministered initially then Hydrocortisone discontinued #. Acute kidney injury, with CK D stage IV POA. Her baseline renal function is not known. Stable. #. Hyperglycemia. Present on admission. Improving. We will follow clinically. - Resolved Chronic stable problems: #PMR # Congestive heart failure systolic with LVEF 35% . Exam Vital Signs (Last) Date Time Temp Pulse Resp B/P Pulse Ox O2 Delivery O2 Flow Rate FiO2 01/31/17 12:11 36.3 99 18 154/83 98 Room Air Exam General: Obese elderly woman in no acute distress HEENT: sclerae anicteric, oral mucosa moist Neck: no JVD Chest: clear to auscultation Cardiac: S1S2, irregular, no murmur Abdomen: BS normal, non-tender Extremities: Trace pitting edema; significant tender nonpitting edema with stasis changes Neuro: A&O, cranial nerves symmetric, motor strength generally normal Test 01/24/17 02:25 01/24/17 16:13 01/25/17 08:50 01/27/17 10:15 Prothrombin Time 12.1sec (8.1-12.5) Prothromb Time International Ratio 1.13ratio Hemoglobin A1c 5.6% (4.8-5.6) Lactic Acid Level 1.1mmol/L (0.4-2.0) Magnesium Level 1.9mg/dL (1.6-2.6) Iron Level 10ug/dL (35-150) Total Iron Binding Capacity 211ug/dL (250-450) Percent Iron Saturation 5%sat (15-50) Unsaturated Iron Binding 201.2ug/dL Thyroid Stimulating Hormone (TSH) 1.340uIU/mL (0.450-4.500) Urine Color Yellow (YELLOW) Urine Appearance Cloudy (CLEAR,HAZY) Urine pH 5.5 (5.0-8.0) Urine Specific [place] 1.020 (1.003-1.035) Urine Protein 100mg/dL (NEG,TRACE) Urine Glucose (UA) Negativemg/dL (NEGATIVE) Urine Ketones Negativemg/dL (NEGATIVE) Urine Occult Blood Moderate (NEGATIVE) Urine Nitrite Negative (NEGATIVE) Urine Bilirubin Negative (NEGATIVE) Urine Urobilinogen Normalmg/dL (NORMAL) Urine Leukocyte Esterase Moderate (NEGATIVE) Urine RBC 0-2/hpf (0-2) Urine WBC Packed/hpf (0-5) Urine Epithelial Cells Few/hpf (NONE-MOD) Urine Crystals None seen (NONE SEEN) Urine Bacteria Moderate/hpf (NONE-FEW) Urine Hyaline Casts None/lpf (NONE) Urine Granular Casts None seen (NONE SEEN) Urine Waxy Casts None seen (NONE SEEN) Urine Red Blood Cell Casts None seen (NONE SEEN) Urine White Blood Cell Casts None seen (NONE SEEN) Urine Mucus None seen (None Seen) Urine Trichomonas None seen (NONE SEEN) Urine Yeast None (NONE SEEN) Urinalysis Comment None Urine Culture Reflexed Indicated Total Bilirubin 0.3mg/dL (0.0-1.2) Aspartate Amino Transf (AST/SGOT) 34U/L (0-50) Alanine Aminotransferase (ALT/SGPT) 45U/L (0-32) Alkaline Phosphatase 103U/L (25-165) Total Protein 5.5g/dL (6.4-8.4) Albumin 2.5g/dL (3.4-5.0) Troponin T 0.145ug/L (0.0-0.011) Test 01/27/17 17:30 01/29/17 05:31 01/31/17 03:20 Hold Purple Top Tube Received (Received) Hold [place] Top Tube Received (Received) Neutrophils (%) (Auto) 84% (40-74) Lymphocytes (%) (Auto) 7% (14-46) Monocytes (%) (Auto) 9% (4-12) Eosinophils (%) (Auto) 0% (0-5) Basophils (%) (Auto) 0% (0-3) White Blood Count 19.9th/mm3 (3.8-10.1) Red Blood Count 3.62mil/mm3 (3.90-5.20) Hemoglobin 9.1g/dL (12.0-15.6) Hematocrit 30.3% (35.0-46.0) Mean Corpuscular Volume 83.7fL (81-100) Mean Corpuscular Hemoglobin 25.1pg (27.0-35.0) Mean Corpuscular Hemoglobin Concent 30.0% (32.0-37.0) Red Cell Distribution Width 18.6% (12.3-15.4) Platelet Count 285bil/L (150-400) Sodium Level 145mEq/L (134-144) Potassium Level 4.1mEq/L (3.5-5.2) Chloride Level 111mEq/L (97-108) Carbon Dioxide Level 19mmol/L (18-29) Blood Urea Nitrogen 44mg/dL (8-27) Creatinine 1.54mg/dL (0.57-1.00) Estimat Glomerular Filtration Rate 47mL/min (>59) Glucose Level 105mg/dL (60-99) Calcium Level 8.5mg/dL (8.5-10.1) Procalcitonin 0.48ng/mL (0.00-0.08) Digoxin Level 0.6nG/mL (0.9-2.0) Discharge Medications Discharge Medications Atenolol (Atenolol) 25 Mg Tablet 25 MG PO DAILY (Reported) Atorvastatin (Lipitor) 20 Mg Tablet 20 MG PO DAILY Prescribed by: JACKELYN MONZON MD Diltiazem ER (Diltiazem ER) 300 Mg Cap.er.24h 300 MG PO DAILY (Reported) PredniSONE (PredniSONE) 1 Mg Tab 1 MG PO UD (Reported) Sulfamethoxazole/Trimeth 800-160 mg (Bactrim DS) 1 Each Tablet 1 TABLET PO BID Prescribed by: JACKELYN MONZON MD Triamterene/Hydrochlorothiazid (Maxzide 37.5 mg-25 mg Tablet) 1 Each Tablet 1 EACH PO DAILY Prescribed by: JACKELYN MONZON MD Vancomycin (Vancomycin) 250 Mg Capsule 250 MG PO Q6 Prescribed by: JACKELYN MONZON MD Miscellaneous Medications Rivaroxaban (Xarelto) 20 Mg Tablet 20 MG PO (Reported) Additional med instructions The antibiotic Bactrim (co-trimoxazole) is prescribed for the next 6 days to complete your treatment for infection of the kidney with spread to the bloodstream. The antibiotic vancomycin capsules is taken 4 times per day for your C. difficile colitis. It is important that you continue this for 1 full week after you complete your antibiotic treatment for the kidney infection. This will prevent recurrence of your C. difficile colitis. C. difficile can cause spores to linger in clothing, bathroom and bedroom areas. It is cleared by soap and water. A thorough laundering of towels, recently used clothes and bedding is advised. A soap and water cleaning of bathroom is recommended. Your blood pressure has been very elevated during this hospitalization. This may in part be due to intravenous fluids that were administered. To help control your blood pressure we advised that you take your usual medications ( atenolol and diltiazem) as well as a new prescription for the mild water pill Maxzide. Take this regularly for the next few weeks, and contact your physician regarding how long this should be continued. Based on your risk factors for vascular disease, we recommend that you take atorvastatin (Lipitor) to reduce your risk of stroke and heart attack. We have reduced the dose slightly in light of your use of diltiazem, which boosts the effect of atorvastatin. Contact your physician regarding continuation of this medication. Followup Plan Follow-up plan We recommend home health physical therapy 3 times per week for the next 4 weeks , home RN once per week for 2 weeks to check your blood pressure and heart rate. Contact your primary care doctor on Friday for a post-hospitalization follow-up appointment. Discharge Diet: Heart Healthy Discharge Activity: Other ( Obtain assistance from friends and family for strenuous activities. Continue with home and outpatient physical therapy to restore your strength.) Patient Instructions Your white blood cell count has remained elevated throughout this hospitalization, although most other signs suggest that you are recovering from urinary infection and colitis. Be vigilant for signs of fever, abdominal pain, diarrhea or confusion which may indicate recurrence of C. difficile infection. Time spent 35 minutes Jackelyn Monzon MD Feb 05, 2017 17:57
== END 2017-01-31 17:35 | disposition home health service (06) | DRG 871 ==
LOC: MPC 01-24 00:29 → OBSVTOIN 01-24 00:29 → EDBD 01-24 00:29 → PCC 01-24 04:55
PROVIDERS: ADMIT Internal Medicine; ATTEND Internal Medicine
DX: A41.51 Sepsis due to Escherichia coli [E. coli] (principal); I21.4 Non-ST elevation (NSTEMI) myocardial infarction; N17.9 Acute kidney failure, unspecified; E27.40 Unspecified adrenocortical insufficiency; N18.4 Chronic kidney disease, stage 4 (severe); I50.22 Chronic systolic (congestive) heart failure; N10 Acute pyelonephritis; A04.7 Enterocolitis due to Clostridium difficile; M35.3 Polymyalgia rheumatica; I48.91 Unspecified atrial fibrillation; R73.9 Hyperglycemia, unspecified; D64.9 Anemia, unspecified; G72.89 Other specified myopathies; I12.9 Hypertensive chronic kidney disease with stage 1 through stage 4 chronic kidney disease, or unspecified chronic kidney disease; B96.20 Unspecified Escherichia coli [E. coli] as the cause of diseases classified elsewhere